=== PATIENT | male | born 1950 | race Caucasian/White ===

== ENCOUNTER → 2016-06-26 | Outpatient (CLI) | payer MEDICARE, OTHER ==
[~2016-06-26] VITALS: Ht 177.8 cm; Wt 92.5 kg
[~2016-06-26] MED LIST: CRES10TA32 PO; LORA10TA2 PO; MECL-86 PO; NS 1,000 ML IV ONE; PROPOFOL 200 MG/20 ML VIAL As Ordered ONE; VALS160T PO
--- NOTE | 2016-06-26 08:52 | ROOR ---
Patient Name: Sylvester Villarreal Procedure Date: 06/26/2016 8:28 AM Date of : 1950 Age: 66 Room: [facility] Gender: Male Note Status: Finalized Procedure: Colonoscopy to Cecum Indications: Screening for colorectal malignant neoplasm, Last colonoscopy: 2003 Providers: Matheus Nielsen MD Referring MD: Rosetta Mazariegos DO Requesting Provider: Medicines: Monitored Anesthesia Care Complications: No immediate complications. Procedure: Pre-Anesthesia Assessment: - The heart rate, respiratory rate, oxygen saturations, blood pressure, adequacy of pulmonary ventilation, and response to care were monitored throughout the procedure. The Colonoscope was introduced through the anus and advanced to the cecum, identified by appendiceal orifice and ileocecal valve. The colonoscopy was performed without difficulty. The patient tolerated the procedure well. The quality of the bowel preparation was poor. Findings: The perianal and digital rectal examinations were normal. Non-bleeding internal hemorrhoids were found during retroflexion. The hemorrhoids were small and Grade I (internal hemorrhoids that do not prolapse). A large amount of stool was found in the entire colon, interfering with visualization. The exam was otherwise without abnormality on direct and retroflexion views. Impression: - Preparation of the colon was poor. - Non-bleeding internal hemorrhoids. - Stool in the entire examined colon. - The examination was otherwise normal on direct and retroflexion views. - No specimens collected. - The exam was otherwise normal to the cecum. Recommendation: - Patient has a contact number available for emergencies. The signs and symptoms of potential delayed complications were discussed with the patient. Return to normal activities tomorrow. Written discharge instructions were provided to the patient. - High fiber diet. - Discharge patient to home. - Continue present medications. - Repeat colonoscopy for screening purposes. - Return to referring physician. - The findings and recommendations were discussed with the patient's family. Matheus Nielsen MD Matheus Nielsen MD 06/26/2016 8:52:11 AM This report has been signed electronically. Number of Addenda: 0 Note Initiated On: 06/26/2016 8:28 AM Estimated Blood Loss: Estimated blood loss: none.
[2016-06-26 09:35] VITALS: BP 185/101
== END ==
LOC: M OPP 14:56
PROVIDERS: ATTEND Internal Medicine Gastroenterology
DX: Z12.11 Encounter for screening for malignant neoplasm of colon (principal); K64.0 First degree hemorrhoids; I10 Essential (primary) hypertension; E78.5 Hyperlipidemia, unspecified; N40.0 Benign prostatic hyperplasia without lower urinary tract symptoms; J01.90 Acute sinusitis, unspecified; E07.9 Disorder of thyroid, unspecified; Z79.899 Other long term (current) drug therapy; J30.2 Other seasonal allergic rhinitis

== ENCOUNTER → 2016-10-02 | Outpatient (CLI) | payer MEDICARE, OTHER ==
[~2016-10-02] MED LIST changes: -NS 1,000 ML IV ONE; -PROPOFOL 200 MG/20 ML VIAL As Ordered ONE
--- NOTE | 2016-10-02 12:33 | REP ---
MRI STUDY OF THE BRAIN AND INTERNAL AUDITORY CANALS WITHOUT AND WITH IV CONTRAST: HISTORY: Bilateral sensorineural hearing loss. Comparison MRI study of the brain is from August 29, 2014. TECHNIQUE: Axial and coronal imaging planes are utilized. T1 and T2-weighted sequences include turbo spin echo, spin echo, FLAIR, 3D gradient echo thin section imaging, and diffusion weighted scans. Post gadolinium enhanced imaging is included. The gadolinium enhancement dose is 18 mL of intravenous ProHance. MRI FINDINGS: No bony calvarial lesion is seen. Visualized paranasal sinuses are clear. Craniocervical junction appears normal. Thin-section 3D gradient echo images through the brainstem shows normal cranial nerves. Internal auditory canals are unremarkable bilaterally. Vestibular and cochlear apparatus is intact on both sides. There is no evidence of middle ear fluid. There is no evidence of intracanalicular or extracanalicular contrast enhancement in either IAC order CP angle cistern. Post contrast study shows enhancement in normal vascular structures. No abnormal intracranial contrast enhancement is seen. Diffusion weighted scans show no evidence to suggest acute ischemia. There is minimal diffuse atrophy. IMPRESSION: Minimal diffuse atrophy. Otherwise, negative brain and posterior fossa MRI study with pre and post gadolinium enhanced imaging. Signed by Je Devine MD 10/02/2016 12:58 P
== END ==
LOC: M RAD 10:54
PROVIDERS: ATTEND Otolaryngology
DX: G31.9 Degenerative disease of nervous system, unspecified (principal); H90.3 Sensorineural hearing loss, bilateral
CPT/HCPCS: 70553; A9576

== ENCOUNTER 2017-01-22 07:24 | Day surgery (SDC) | payer MEDICARE, OTHER ==
[~2017-01-22] VITALS: Ht 177.8 cm; Wt 92.1 kg
[2017-01-22] MEDS ORDERED: NS 1,000 ML IV ONE (07:45)
[2017-01-22] MEDS ORDERED: PROPOFOL 200 MG/20 ML VIAL As Ordered ONE (08:21)
[2017-01-22] MEDS ORDERED: LIDOCAINE 2% INJ 100 MG/5 ML SDV (FOR ANES.) As Ordered ONE (08:21)
--- NOTE | 2017-01-22 08:58 | ROOR ---
Patient Name: Sylvester Villarreal Procedure Date: 01/22/2017 8:29 AM Date of : 1950 Age: 66 Room: [facility] Gender: Male Note Status: Finalized Procedure: Total Colonoscopy to Cecum Indications: Screening for colorectal malignant neoplasm Providers: Matheus Nielsen MD Referring MD: Rosetta Mazariegos DO Requesting Provider: Medicines: Monitored Anesthesia Care Complications: No immediate complications. Procedure: Pre-Anesthesia Assessment: - The heart rate, respiratory rate, oxygen saturations, blood pressure, adequacy of pulmonary ventilation, and response to care were monitored throughout the procedure. The Colonoscope was introduced through the anus and advanced to the cecum, identified by appendiceal orifice and ileocecal valve. The colonoscopy was performed without difficulty. The patient tolerated the procedure well. The quality of the bowel preparation was fair. Findings: The perianal and digital rectal examinations were normal. Non-bleeding internal hemorrhoids were found during retroflexion. The hemorrhoids were small and Grade I (internal hemorrhoids that do not prolapse). A moderate amount of stool was found in the entire colon, precluding visualization. The exam was otherwise without abnormality. Impression: - Preparation of the colon was fair. - Non-bleeding internal hemorrhoids. - Stool in the entire examined colon. - The examination was otherwise normal. - No specimens collected. - The exam was otherwise normal to the cecum. Recommendation: - Patient has a contact number available for emergencies. The signs and symptoms of potential delayed complications were discussed with the patient. Return to normal activities tomorrow. Written discharge instructions were provided to the patient. - High fiber diet. - Discharge patient to home. - Continue present medications. - Repeat colonoscopy in 10 years for screening purposes. - Return to referring physician. - The findings and recommendations were discussed with the patient's family. Matheus Nielsen MD Matheus Nielsen MD 01/22/2017 8:57:18 AM This report has been signed electronically. Number of Addenda: 0 Note Initiated On: 01/22/2017 8:29 AM Estimated Blood Loss: Estimated blood loss: none.
[2017-01-22 13:24] VITALS: BP 133/80
== END 2017-01-22 09:26 | disposition home or self-care (01) ==
LOC: M OPP 07:24
PROVIDERS: ATTEND Internal Medicine Gastroenterology
DX: Z12.11 Encounter for screening for malignant neoplasm of colon (principal); K64.0 First degree hemorrhoids; I10 Essential (primary) hypertension; E78.5 Hyperlipidemia, unspecified; R42 Dizziness and giddiness; R06.83 Snoring; G47.30 Sleep apnea, unspecified; E04.1 Nontoxic single thyroid nodule; N40.1 Benign prostatic hyperplasia with lower urinary tract symptoms; J32.9 Chronic sinusitis, unspecified; Z79.899 Other long term (current) drug therapy

== ENCOUNTER → 2020-02-08 | Outpatient (CLI) | payer SELFPAY ==
[~2020-02-08] MED LIST changes: +CRES10TA PO; -CRES10TA32 PO; +LORA-243 PO; -LORA10TA2 PO; -VALS160T PO; +VALS160T2 PO
== END ==
LOC: M LABSMTC 13:57
PROVIDERS: ATTEND Pediatrics
DX: Z20.828 Contact with and (suspected) exposure to other viral communicable diseases (principal)

== ENCOUNTER → 2020-02-27 | Outpatient (CLI) | payer SELFPAY | LOC: M LABSMTC 08:37 | PROVIDERS: ATTEND Pediatrics | DX: Z20.822 Contact with and (suspected) exposure to COVID-19 (principal) ==

== ENCOUNTER → 2020-07-05 | Outpatient (CLI) | payer MEDICARE, OTHER ==
--- NOTE | 2020-07-05 14:22 | REP ---
INDICATION: THYROID NODULES. COMPARISON: None TECHNIQUE: Thyroid ultrasonography FINDINGS: Right lobe of the thyroid measures 4.8 x 2.3 x 1.8 cm and the left lobe measures 5 x 1.7 x 2.2 cm. The isthmus measures 2.5 mm. In the midpole of right lobe there is a 3 mm sized hypoechoic area possibly a tiny cyst. In the left lobe of the thyroid gland midpole there is a 1 cm sized solid nodule. In the inferior pole there are 2 solid nodules each measuring 1 cm. IMPRESSION: Small nodules as described above. <Electronically signed by Yogi Garcia > 07/05/20 [id number]
== END ==
LOC: M RAD 13:44
PROVIDERS: ATTEND Internal Medicine
DX: E04.9 Nontoxic goiter, unspecified (principal)

== ENCOUNTER → 2021-08-07 | Outpatient (CLI) | payer MEDICARE, OTHER | LOC: M WUC 10:09 | PROVIDERS: ATTEND Internal Medicine | DX: R06.02 Shortness of breath (principal); R05.9 Cough, unspecified ==

== ENCOUNTER → 2022-06-13 | Outpatient (CLI) | payer MEDICARE, OTHER | LOC: M SLEEP 20:00 | PROVIDERS: ATTEND Nurse Practitioner Family | DX: G47.33 Obstructive sleep apnea (adult) (pediatric) (principal) ==

== ENCOUNTER → 2022-07-08 | Outpatient (CLI) | payer MEDICARE | LOC: M WUC 10:08 | PROVIDERS: ATTEND Internal Medicine | DX: R06.02 Shortness of breath (principal) ==

== ENCOUNTER → 2022-12-12 | Outpatient (CLI) | payer MEDICARE, OTHER | LOC: M SLEEP 20:00 | PROVIDERS: ATTEND Nurse Practitioner Family | DX: G47.33 Obstructive sleep apnea (adult) (pediatric) (principal) ==

== ENCOUNTER → 2023-07-28 | Outpatient (CLI) | payer MEDICARE, OTHER | LOC: M WHC 07:52 | PROVIDERS: ATTEND Internal Medicine | DX: K76.0 Fatty (change of) liver, not elsewhere classified (principal) ==

== ENCOUNTER → 2023-08-20 | Outpatient (REF) | payer MEDICARE, OTHER | LOC: M LAB REF 12:15 | PROVIDERS: ATTEND Internal Medicine | DX: H81.10 Benign paroxysmal vertigo, unspecified ear (principal) ==

== ENCOUNTER → 2024-06-10 | Outpatient (REF) | payer MEDICARE, OTHER ==
[2024-06-10 12:38] LABS: FOLATE > 24.0 NG/ML (>5.4); VITAMIN B12 LEVEL 616 PG/ML (211-911)
== END ==
LOC: M LAB REF 11:28
PROVIDERS: ATTEND Internal Medicine
DX: E53.8 Deficiency of other specified B group vitamins (principal); R42 Dizziness and giddiness

== ENCOUNTER → 2024-07-01 | Outpatient (REF) | payer MEDICARE, OTHER | LOC: M LAB REF 12:59 | PROVIDERS: ATTEND Internal Medicine | DX: E53.8 Deficiency of other specified B group vitamins (principal) ==

== ENCOUNTER → 2024-12-24 | Outpatient (REF) | payer MEDICARE, OTHER | LOC: M LAB REF 14:40 | PROVIDERS: ATTEND Internal Medicine | DX: D51.9 Vitamin B12 deficiency anemia, unspecified (principal) ==